=== PATIENT | male | born 1975 | race African-American/Black ===

== ENCOUNTER 2024-02-27 11:16 | Emergency (ER) | payer MEDICAID, SELFPAY ==
--- NOTE | ~2024-02-27 | CT_ITS ---
EXAMINATION: CT HEAD WITHOUT CONTRAST CLINICAL INFORMATION: Headache and neck pain COMPARISON: None TECHNIQUE: Contiguous axial imaging was performed from the skull base to vertex without intravenous administration of contrast. This CT examination was performed using dose optimization techniques as appropriate, variously including the following: *Automated exposure control *Adjustment of mA and/or kV according to patient size (this includes techniques or standardized protocols for targeted exams where dose is matched to indication/reason for exam; i.e. extremities or head) *Use of iterative reconstruction technique DLP: 683.45 mGy-cm FINDINGS: There is no evidence of acute intracranial hemorrhage or territorial infarction. Hypodense CSF attenuating focus along the posterior aspect of the right posterior ventricular the occipital lobe measuring 9 mm potentially representing extension of the ventricle versus an arachnoid cyst versus enlarged Virchow-Nic space. No abnormal mass effect or midline shift is seen. Ware to white matter differentiation is well preserved. No extra-axial fluid collections are identified. The ventricles are normal in size. There is no abnormal attenuation within the brain parenchyma. The osseous structures and soft tissues are normal. The mastoid air cells and visualized portions of the paranasal sinuses are well aerated. CT/CT cervical spine wo IV con IMPRESSION: 1. No acute intracranial pathology. 2. Hypodense CSF attenuating focus along the posterior aspect of the right posterior ventricular in the occipital lobe measuring 9 mm potentially representing extension of the ventricle versus an arachnoid cyst versus enlarged Virchow-Nic space. EXAMINATION: Noncontrast CT scan of the cervical spine. INDICATION: Headache and neck pain COMPARISON: None. TECHNIQUE: Helical, multidetector axial images were obtained from the occiput to the upper thorax. Coronal and sagittal reformats of the cervical spine were provided for interpretation. DLP: 414.27 mGy-cm FINDINGS: No acute fractures or dislocations of the cervical spine are seen. Reversal of the normal cervical curvature. Multilevel degenerative changes. Anatomic alignment and positioning of the vertebral bodies and posterior elements is noted. The atlantoaxial joint and craniovertebral articulations are normal without evidence of subluxation. There is no prevertebral soft tissue swelling. The thyroid gland is unremarkable. IMPRESSION: 1. No acute visible fracture or dislocation. 2. Reversal of the normal cervical curvature. 3. Multilevel degenerative changes.
[2024-02-27 11:45] VITALS: BP 124/80; PULSE 69; RESP 16; TEMP 36.4; O2SAT 96; BMI 29.2
--- NOTE | 2024-02-27 11:52 | ECG_ITS ---
Test Reason : HEADACHE Blood Pressure : / mmHG Vent. Rate : 056 BPM Atrial Rate : 056 BPM P-R Int : 158 ms QRS Dur : 080 ms QT Int : 384 ms P-R-T Axes : 003 028 002 degrees QTc Int : 370 ms Sinus bradycardia Nonspecific T wave abnormality Abnormal ECG No previous ECGs available Referred By: Nelson Sue Electronically Signed By:LIBERTY PHILIPPE MD
--- NOTE | 2024-02-27 11:55 | ED_ITS ---
HPI - General Adult General Chief complaint: Headache Stated complaint: Headache Time Seen by Provider: 02/27/24 14:07 Source: patient Mode of arrival: ambulatory Limitations: no limitations History of Present Illness ED Provider: Nelson Sue PA-C HPI narrative: 48 yold male with no known pmh presents to the ED for posterior headache/neck pain that began this morning. Patient states he is under alot of stress due to his son being sick with appendicitis in [facility] and his son safety due to [facility]'s political instability. Patient thinks stress is causing his headaches. patient denies any fever, chills, neck stiffness, photophobia, rash, dizziness, chest pain, shortness of breath, loss of vision, slurred speech, paralysis of extremies, facial droop, numbness, tinglng, or any recent trauma. Related Data Previous Rx's ?Medication ?Instructions ?Recorded naproxen 500 mg tablet 500 mg PO BID PRN pain 7 days #14 02/27/24 tabs Allergies Allergy/AdvReac Type Severity Reaction Status Date / Time No Known Allergies Allergy Verified 02/27/24 11:48 Review of Systems 2 Review of Systems: headache and posterior neck pain Yes all other systems are reviewed and are negative [facility] Social History Social History Smoked in Last 30 Days: No Use of substances other than those prescribed or required for medical reasons: No Advance Directives: No Advance Directives Information Provided: Yes Do you have a plan to hurt others: No Plan Physical Exam ED Vital Signs: Vital Signs - 24 hr 02/27/24 11:45 02/27/24 14:11 02/27/24 15:43 Temperature 97.5 F 98.2 F 97.7 F Pulse Rate 69 58 55 Respiratory Rate 16 18 16 Blood Pressure 124/80 135/82 127/85 Pulse Oximetry 96 100 99 Oxygen Delivery Method Room Air Room Air Room Air BMI result Body Mass Index 29.2 Const General: cooperative, healthy appearing, comfortable, no acute distress, well developed, alert, awake and Physically active Orientation/consciousness: oriented to person, oriented to place, oriented to time and patient oriented x3 HENMT Head: Yes normal to inspection, Yes No palpable skull fracture present, Yes normocephalic and Yes atraumatic Ears: hearing grossly normal bilaterally, external ears normal, TM's normal bilaterally, TM normal on the right, TM normal on the left, EAC's normal, mastoids normal and no periauricular adenopathy General nose exam: Normal external nose present and Normal nares present Face and sinus: Yes normal facial exam, Yes sinuses nontender and Yes face symmetric Throat: Yes posterior oropharynx normal, Yes tonsils normal and Yes uvula midline Eyes General: appearance normal, both eyes and all related structures Visual Magaña: normal visual magaña by confrontation Alignment and Position: alignment normal Periorbital: periorbital findings normal Eyelids: Yes eyelids normal Conjunctivae: conjunctivae normal Sclerae: sclerae normal Corneas: corneas normal Pupils: Equal, round and reactive pupils present EOM: EOMs intact bilaterally Direct Ophthalmoscopy: normal light reflex Neck Neck: Yes normal visual inspection, Yes full ROM, Yes no lymphadenopathy, Yes no meningeal signs, Yes trachea midline, Yes supple, No anterior neck swelling and No tender Chest Chest palpation & inspection: normal inspection of the chest and normal palpation of entire chest wall Resp Effort & Inspection: normal respiratory effort and able to speak in complete sentences Auscultation: clear to auscultation bilaterally Cardio Jugular venous distension: no JVD Heart sounds: S1 normal heart sound present and S2 normal heart sound present GI Inspection: Yes normal to inspection Palpation (GI): Soft to palpation, not firm, nontender, no guarding and not rigid General: No CVA tenderness and Yes no CVA tenderness Back/Spine/Pelvis Back: no CVA tenderness, No CVA tenderness and No back tenderness Skin General skin exam: no rashes or lesions noted, elasticity normal and turgor normal Neuro General: oriented to person, oriented to place, oriented to time, patient oriented x3, gait normal, tone normal, moves all extremities, Normal light touch and pain sensation, no meningeal signs, no focal motor deficits, CN's II-XI intact bilaterally and normal sensation to monofilament Cranial nerves: Yes Equal, round and reactive pupils present Extrem General: Yes normal to inspection, Yes full ROM and Yes capillary refill normal Psych Appearance: grossly normal, well kempt and not disheveled Course Course Course Narrative: RME: Done by Vikram. 48-year-old male presents to the ED for headache and posterior neck pain since this morning. Patient states might be due to stress. Patient states having Wednesday 6 and headache. Patient denies any photophobia, neck stiffness, chest pain, shortness of breath, nausea, vomiting, any recent injury. NIH score is 0. Negative for any stroke-like symptoms. Labs EKG head CT ordered Medications Administered Discontinued Medications Generic Name Dose Route Start Last Admin Trade Name Bienvenido PRN Reason Stop Dose Admin Acetaminophen 975 mg 02/27/24 14:12 02/27/24 14:26 Acetaminophen 325 Mg Tablet PO 02/27/24 14:13 975 mg ONCE ONE Administration Medical Decision Making Medical Decision Making [facility] Narrative: 48 yold male presents to the ED for headache and posterior neck pain without any trauma. patient denies any neuro symptoms, neck stiffness, photophobia, fever, chills, nausea, chest pain, shortness of breath or vomiting. Patient denies any dizziness. Patient states under lot of stress due to son being sick in [facility]. Patient states his son is not safe. Physical exam does not indicate meningitis, cephalitis, stroke, vertigo, myocardial infarction, cavernous sinus thrombosis, brain CA, or large neck embolus. CT scan negative for any acute cranial etiologies. Does shows possible arachnoid cyst vs virchow space. Presently physical exam does not indicate hydrocephalus, stroke, or any emergent etiology.. Patient made informed of this given copy of images told to follow-up with neurologist and primary care provider. Patient explained worrisome signs and informed to return to the ED immediately. Headache resolved after patient's received motrin. NIH score 0. Differential Diagnosis Differential Diagnoses: The differential diagnosis associated with the presentation includes (migraine headache) Admission/Observation Consideration of admission/observation: Escalation of care including admission/observation considered Lab Data [facility] Lab Attestation statement: I reviewed the patient's lab results. 02/27/24 12:08 02/27/24 12:08 Labs: Lab Results 02/27/24 02/27/24 02/27/24 Range/Units 12:06 12:08 14:10 WBC 8.0 (4.8-10.8) X10*3/uL RBC 4.68 (4.60-5.80) X10*6/uL Hgb 14.1 (14.0-18.0) g/dl Hct 38.3 L (42.0-52.0) % MCV 81.8 (80.0-98.0) fL MCH 30.1 (27.0-33.0) pg MCHC 36.8 H (31.0-36.0) g/dl RDW 12.7 (11.0-16.0) % Plt Count 245 (160-400) X10*3/uL MPV 10.5 (9.4-12.4) fL Immature Gran % (Auto) 0.4 (0.0-0.4) % Neut % (Auto) 44.2 L (45-73) % Lymph % (Auto) 35.6 (20-40) % Bourbon % (Auto) 10.2 (2-11) % Eos % (Auto) 8.5 H (0-4) % Baso % (Auto) 1.1 (0-2) % Lymph # (Auto) 2.9 (1.2-4.9) X10*3/uL Bourbon # (Auto) 0.8 (0.1-1.2) X10*3/uL Eos # (Auto) 0.7 H (0.0-0.4) X10*3/uL Baso # (Auto) 0.1 (0.0-0.2) X10*3/uL Abs Immat Gran (auto) 0.03 (0.00-0.03) X10*3/uL Absolute Neuts (auto) 3.6 (2.0-8.3) x10*3/uL Absolute Nucleated RBC 0.000 (0.0-0.012) X10*3/uL Nucleated RBC % (auto) 0.0 (0.0-0.2) /100WBC PT 11.3 (11.1-13.3) SEC INR 0.9 (0.9-1.1) APTT 31.7 (26.0-36.8) SEC Sodium 141 (135-145) mmol/L Potassium 4.0 (3.3-5.1) mmol/L Chloride 108 (96-108) mmol/L Carbon Dioxide 25 (22-29) mmol/L Anion Gap 12 (12-20) BUN 9 (9-16) mg/dL Creatinine 0.95 (0.5-1.4) mg/dL Estim Creat Clear Calc 114.2 Estimated GFR > 60 Random Glucose 96 (60-115) mg/dL Calcium 9.9 (8.4-10.2) mg/dL Total Bilirubin 0.9 (0.0-1.0) mg/dL AST 32 (5-37) U/L ALT 52 H (0-40) U/L Alkaline Phosphatase 99 (39-117) U/L Troponin I High Sens < 2.7 < 2.7 (<3.5-35.0) ng/L Total Protein 7.5 (6.5-8.0) g/dL Albumin 4.1 (3.5-5.0) g/dL Influenza Type A (PCR) NEGATIVE (Negative) Influenza Type B (PCR) NEGATIVE (Negative) RSV RNA Qual (PCR) NEGATIVE (Negative) SARS-CoV-2 RNA (RT-PCR) NEGATIVE (Negative) Independent Interpretation I performed an independent interpretation of an: EKG (Sinus bradycardia) and CT Scan Radiology Impression Discussion of test interpretation with radiology: I have reviewed the radiologist's reading. Independent Historian Clinical information obtained from an independent historian. History obtained from or confirmed by: Other External Record Review External record reviewed: Other Prescription Management I considered prescription management with: Other (naproxen) Discharge Plan Discharge Clinical Impression: Headache Patient Disposition: Home, Self-Care Instructions: General Headache (ED) Additional Instructions: Return to the ED immediately for worsening headache, nausea, vomitting, chest pain, shortness of breath, slurred speech, facial droop, paralysis of extremities, neck stiffness, fever, chills, dizziness, loss of vision, inability to walk, or any other concerning symptoms. Recommend follow-up with primary care provider. CT/CT head/brain wo IV con IMPRESSION: 1. No acute intracranial pathology. 2. Hypodense CSF attenuating focus along the posterior aspect of the right posterior ventricular in the occipital lobe measuring 9 mm potentially representing extension of the ventricle versus an arachnoid cyst versus enlarged Virchow-Nic space. FINDINGS: No acute fractures or dislocations of the cervical spine are seen. Reversal of the normal cervical curvature. Multilevel degenerative changes. Anatomic alignment and positioning of the vertebral bodies and posterior elements is noted. The atlantoaxial joint and craniovertebral articulations are normal without evidence of subluxation. There is no prevertebral soft tissue swelling. The thyroid gland is unremarkable. IMPRESSION: 1. No acute visible fracture or dislocation. 2. Reversal of the normal cervical curvature. 3. Multilevel degenerative changes. Prescriptions: New naproxen 500 mg tablet 500 mg PO BID PRN (Reason: pain) 7 Days Qty: 14 0RF Referrals: [facility] [place] [facility] [Provider Group] (Head CT scan shows arachnoid cysts vs virchow space) Heriberto Oseguera MD [Physician] - (Head CT sacn shows arachnoid cyst vs virchow spaces.) Interventions: ED Discharge Assessment Last Done: 02/27/24 15:43 Discharge Date/Time: 02/27/24 15:44 Print Language: Monegasque Creole
[2024-02-27 12:13] LABS: MANUAL DIFF FLAG NO
[2024-02-27 12:15] LABS: Basophils Absolute Auto 0.1 X10*3/uL (0.0-0.2); Basophils Percent Auto 1.1 % (0-2); Eosinophils Absolute Auto 0.7 X10*3/uL (0.0-0.4); Eosinophils Percent Auto 8.5 % (0-4); Hematocrit 38.3 % (42.0-52.0); Hemoglobin 14.1 g/dl (14.0-18.0); Imm Gran Abs Auto 0.03 X10*3/uL (0.00-0.03); Imm Gran Pct Auto 0.4 % (0.0-0.4); Lymphocytes Absolute Auto 2.9 X10*3/uL (1.2-4.9); Lymphocytes Percent Auto 35.6 % (20-40); Mean Corpuscular HGB Conc 36.8 g/dl (31.0-36.0); Mean Corpuscular Hemoglobin 30.1 pg (27.0-33.0); Mean Corpuscular Volume 81.8 fL (80.0-98.0); Mean Platelet Volume 10.5 fL (9.4-12.4); Monocytes Absolute Auto 0.8 X10*3/uL (0.1-1.2); Monocytes Percent Auto 10.2 % (2-11); Neutrophils Absolute Auto 3.6 x10*3/uL (2.0-8.3); Neutrophils Percent Auto 44.2 % (45-73); Platelet Count 245 X10*3/uL (160-400); Red Blood Count 4.68 X10*6/uL (4.60-5.80); Red Cell Distribution Width 12.7 % (11.0-16.0)
[2024-02-27 12:24] LABS: INTERNATIONAL NORM RATIO 0.9 (0.9-1.1); Prothrombin Time 11.3 SEC (11.1-13.3)
[2024-02-27 12:27] LABS: Partial Thromboplastin Time 31.7 SEC (26.0-36.8)
[2024-02-27 12:44] LABS: Alanine Aminotransferase 52 U/L (0-40); Albumin Level 4.1 g/dL (3.5-5.0); Alkaline Phosphatase 99 U/L (39-117); Anion Gap 12 (12-20); Aspartate Amino Transferase 32 U/L (5-37); Bilirubin Total 0.9 mg/dL (0.0-1.0); Blood Urea Nitrogen 9 mg/dL (9-16); Calcium 9.9 mg/dL (8.4-10.2); Carbon Dioxide 25 mmol/L (22-29); Chloride 108 mmol/L (96-108); Creatinine Clr Calc Pharmacy 114.2; Estimated Glomerular Filt Rate > 60; Glucose Random 96 mg/dL (60-115); Sodium 141 mmol/L (135-145); Total Protein 7.5 g/dL (6.5-8.0)
[2024-02-27 12:52] LABS: Influenza A PCR NEGATIVE (Negative); Influenza B PCR NEGATIVE (Negative); Resp Syncy Virus RNA Qual PCR NEGATIVE (Negative); SARS COV2 PCR INHOUSE NEGATIVE (Negative)
[2024-02-27 13:08] LABS: Troponin-I High Sensitivity < 2.7 ng/L (<3.5-35.0)
[2024-02-27 14:11] VITALS: BP 135/82; PULSE 58; RESP 18; TEMP 36.8; O2SAT 100
[2024-02-27] MEDS: Acetaminophen 325 MG TABLET 975 MG PO (14:26)
[2024-02-27 14:55] LABS: Troponin-I High Sensitivity < 2.7 ng/L (<3.5-35.0)
[2024-02-27 15:43] VITALS: BP 127/85; PULSE 55; RESP 16; TEMP 36.5; O2SAT 99
== END 2024-02-27 15:44 | disposition home or self-care (01) ==
PROVIDERS: Physician Assistant; Emergency Provider Emergency Medicine
DX: R51.9 Headache, unspecified (principal); M54.2 Cervicalgia; Z03.818 Encounter for observation for suspected exposure to other biological agents ruled out
CPT/HCPCS: 0241U; 36415; 70450; 72125; 80053; 84484; 85025; 85610; 85730; 93005; 99284; 99285

== ENCOUNTER → 2024-02-27 11:52 | Outpatient (BNV) | payer MEDICAID, SELFPAY | PROVIDERS: Emergency Provider Emergency Medicine; Visit Provider Internal Medicine Cardiovascular Disease | DX: R00.1 Bradycardia, unspecified (principal); R94.31 Abnormal electrocardiogram [ECG] [EKG] | CPT/HCPCS: 93010 ==

== ENCOUNTER 2024-05-20 08:51 | Emergency (ER) | payer MEDICAID, SELFPAY ==
[2024-05-20 09:10] VITALS: BP 150/66; PULSE 65; RESP 18; TEMP 37.2; O2SAT 99; BMI 33.1
--- NOTE | 2024-05-20 11:30 | ED.GENADULT ---
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 Patient states that he has had this issue since before he moved to the [place] but after he moved here, he got a shot and it was doing much better. Patient states that over the last few days he has had left sided shoulder pain that radiates into his neck. Patient states that he tried to call the number they gave him to discuss his abnormal CT scan but they told him to come back to the ER cause they couldn't see him. Patient denies any dizziness, lightheadedness, abdominal pain, nausea, vomiting, fever, chills, blurry vision, double vision, loss of vision, chest pain, difficulty breathing, shortness of breath, back pain, night sweats, pain with urination, increased urinary frequency, increased urinary urgency, blood in his urine or stool, syncope or a near syncopal episode, recent trauma or falls, bowel incontinence, bladder incontinence, or any other complaints at this time. Relieving factors: none Exacerbating factors: none Associated symptoms: denies other symptoms Treatments prior to arrival: none Related Data Previous Rx's ?Medication ?Instructions ?Recorded naproxen 500 mg tablet 500 mg PO BID PRN pain 7 days #14 02/27/24 tabs Allergies Allergy/AdvReac Type Severity Reaction Status Date / Time No Known Allergies Allergy Verified 05/20/24 09:16 Review of Systems Constitutional: Constitutional: Reports no additional constitutional complaints, Denies chills, Denies fever(s) and Denies night sweats Eyes: Eyes: Reports no additional eye complaints, Denies blurry vision, Denies change in vision, Denies diplopia, Denies eye discharge, Denies loss of vision and Denies eye pain ENT: Denies dizziness Comments: left sided neck pain Cardiovascular: Cardiovascular: Reports no additional cardiovascular complaints, Denies chest pain, Denies lightheadedness, Denies Loss of Consciousness and Denies dyspnea Respiratory: Respiratory: Reports no additional respiratory complaints and Denies dyspnea Gastrointestinal: Gastrointestinal: Reports no additional gastrointestinal complaints, Denies abdominal pain, Denies melena, Denies hematochezia, Denies change in bowel habits and Denies change in stool character Genitourinary: Genitourinary: Reports no additional male genitourinary complaints, Denies hematuria, Denies oliguria, Denies difficulty urinating, Denies dysuria, Denies urinary frequency, Denies urinary hesitancy, Denies urinary incontinence and Denies urinary urgency Musculoskeletal: Musculoskeletal: Reports no additional musculoskeletal complaints, Denies numbness and Denies tingling Neurologic: Denies dizziness, Denies loss of vision, Denies numbness and Denies tingling Psychiatric: Psychiatric: Reports no additional psychiatric complaints Endocrine: Endocrine: Reports no additional endocrine complaints Hematologic/Lymphatic: Hematologic/Lymphatic: Reports no additional hematologic/lymphatic complaints Allergic/Immunologic: Allergic/Immunologic: Reports no additional allergic/immunologic complaints PMFSH Past Medical History Attestation statement: The following information was validated with the patient. Source: old records reviewed and nursing notes reviewed Social History Social History Advance Directives: No Advance Directives Information Provided: No Do you have a plan to hurt others: No Plan Physical Exam ED Vital Signs: Vital Signs - 24 hr 05/20/24 09:10 05/20/24 11:56 Temperature 98.9 F 98.9 F Pulse Rate 65 65 Respiratory Rate 18 18 Blood Pressure 150/66 H 150/66 H Pulse Oximetry 99 99 Oxygen Delivery Method Room Air Room Air BMI result Body Mass Index 33.1 Const General: cooperative, no acute distress, alert and awake Nutritional Appearance: well nourished Orientation/consciousness: patient oriented x3 Limitations: no limitations HENMT Head: Yes normal to inspection and Yes atraumatic Ears: hearing grossly normal bilaterally and external ears normal General nose exam: Normal external nose present, no nasal discharge noted and no epistaxis Face and sinus: Yes normal facial exam, No abrasion and No laceration Mouth: Normal oral and palatal mucosa present, no drooling and no muffled voice Eyes General: appearance normal, both eyes and all related structures Periorbital: periorbital findings normal Eyelids: Yes eyelids normal Conjunctivae: conjunctivae normal Pupils: Equal, round and reactive pupils present EOM: EOMs intact bilaterally Neck Neck: Yes normal visual inspection, Yes full ROM and Yes no lymphadenopathy Chest Chest palpation & inspection: normal inspection of the chest Resp Effort & Inspection: normal respiratory effort and able to speak in complete sentences GI Inspection: Yes normal to inspection Neuro General: patient oriented x3 and moves all extremities Cranial nerves: Yes Equal, round and reactive pupils present Cognition (Neuro): normal cognition Extrem General: Yes normal to inspection, Yes full ROM and Yes capillary refill normal Psych Appearance: grossly normal Mental Status: mental status grossly normal Affect: normal affect Attitude: cooperative Thought process: Normal thought process present Thought content: Normal thought content present Insight: Good insight present (Psych) Medications Administered Discontinued Medications Generic Name Dose Route Start Last Admin Trade Name Freq PRN Reason Stop Dose Admin Ketorolac Tromethamine 15 mg 05/20/24 11:52 05/20/24 11:59 Ketorolac Tromethamine 15 Mg/Ml Vial IM 05/20/24 11:53 15 mg ONCE ONE Administration Medical Decision Making Medical Decision Making [facility] Narrative: Patient is a 48 year old assigned male at with a history of an abnormal head CT in 02/2024, presenting to the emergency department today with left sided shoulder and neck pain. Patient's physical exam was unremarkable. I explained my physical exam findings to the patient. I answered all questions asked by the patient. I reviewed the patient's previous CT scan. The interpretation was that of an arachnoid cyst vs. enlarged ventricle vs. normal anatomical variance. Patient does not have any neurological symptoms and the scan does not need repeated today. I stressed the importance of the patient taking his medication as directed (either prescribed or as the over the counter packaging recommends). I stressed the importance of the patient following up with his primary care provider and a neurologist. I stressed the importance of the patient returning to the emergency department immediately if his symptoms were to worsen or if he were to develop any dizziness, shortness of breath, difficulty breathing, chest pain, blurry vision, loss of vision, nausea, vomiting, abdominal pain, fever, chills, back pain, or any other complaints. Patient verbalized agreement and understanding with this treatment plan and discharge. Differential Diagnosis Differential Diagnoses: The differential diagnosis associated with the presentation includes Cervical radiculopathy Admission/Observation Consideration of admission/observation: Escalation of care including admission/observation considered Patient would have been admitted to the hospital had his clinical presentation warranted hospital admission. Discharge Plan Discharge Clinical Impression: Cervical radiculopathy Patient Disposition: Home, Self-Care Instructions: Cervical Radiculopathy (ED) Additional Instructions: Follow up with your primary care provider and for your previous abnormal CT scan - a neurologist. Return to the emergency department immediately if your symptoms worsen or if you develop any dizziness, shortness of breath, difficulty breathing, chest pain, blurry vision, loss of vision, nausea, vomiting, abdominal pain, fever, chills, back pain, or any other complaints. Swiv ak founis? swen prensipal ou a ak keyla eskan? CT n?mal ou anvan - yon newol?g. Retounen nan depatman ijans imedyatman si sent?m ou yo dallas pi mal oswa si ou devlope nenp?t v?tij, souf kout, difikilte keyla respire, doul? nan pwatrin, vizyon twoub, p?t vizyon, k? plen, vomisman, doul? nan vant, lafy?v, frison, doul? nan do, oswa nenp?t l?t plent. Prescriptions: No Action naproxen 500 mg tablet 500 mg PO BID PRN (Reason: pain) 7 Days Qty: 14 0RF Referrals: [facility] [place] Family Medicine [Provider Group] (Call to establish and follow up with a primary care provider. If you already have a primary care provider, please follow up with them. Rele keyla etabli epi swiv ak yon founis? swen prensipal. Si w leatha gen yon founis? swen prensipal, tanpri swiv li.) [facility] [place]] (Call to establish and follow up with a primary care provider. If you already have a primary care provider, please follow up with them. Rele keyla etabli epi swiv ak yon founis? swen prensipal. Si w leatha gen yon founis? swen prensipal, tanpri swiv li.) [facility] [Provider Group] (Call to establish and follow up with a primary care provider. If you already have a primary care provider, please follow up with them. Rele keyla etabli epi swiv ak yon founis? juan augustin. Si w leatha gen yon founis? juan augustin, navid romero.) [facility] [place] Neuro/Sleep [Provider Group] (Call to establish and follow up with a neurologist to discuss your abnormal CT scan of the head. Rele keyla etabli epi swiv ak yon newol?g keyla diskite юлия eskan? CT n?mal ou nan t?t la.) Interventions: ED Discharge Assessment Last Done: 05/20/24 11:56 Discharge Date/Time: 05/20/24 12:04 Print Language: Tabatha Alberto
[2024-05-20 11:56] VITALS: BP 150/66; PULSE 65; RESP 18; TEMP 37.2; O2SAT 99
[2024-05-20] MEDS: Ketorolac Tromethamine 15 MG/ML VIAL IM (11:59)
== END 2024-05-20 12:04 | disposition home or self-care (01) ==
PROVIDERS: Emergency Provider Emergency Medicine
DX: M54.12 Radiculopathy, cervical region (principal)
CPT/HCPCS: 96372; 99283; 99284; J1885